=== PATIENT | female | born 1970 | race Caucasian/White ===

== ENCOUNTER 2021-04-25 07:37 | Day surgery (SDC) | payer BC ==
[~2021-04-25] VITALS: Ht 157.5 cm; Wt 52.8 kg
[2021-04-25] MEDS ORDERED: OMNIPOD DASH1 EACH SQ (07:53)
[2021-04-25] MEDS ORDERED: PRINIVIL2.5 MG PO (07:53)
[2021-04-25] MEDS ORDERED: OSPHENA60 MG PO (07:54)
[2021-04-25] MEDS ORDERED: ONE-A-DAY ESSE1 EACH PO (07:54)
[2021-04-25] MEDS ORDERED: CALCIUM 600MG+D1 TAB PO (07:55)
[2021-04-25 07:59] VITALS: BP 97/70; PULSE 83; TEMP 97.6
[2021-04-25 09:40] VITALS: BP 92/73; PULSE 67; TEMP 97.1
--- NOTE | 2021-04-25 09:40 | NUR ---
0908-Patient arrived to [facility] [place] [facility] s/p colonoscopy with Dr. Cerrato. She is awake and ambulating with standby assistance from cart to recliner. Spouse is at bedside with her. Vitals remain stable. SPO2 is 99% on room air. Abdomen is soft and she denies having any pain or nausea at this time. Dr. Cerrato was in to speak with her spouse regarding procedure findings. Call gardner in reach. 3452-Given water and blueberry muffin per request.
[2021-04-25 09:55] VITALS: BP 104/64; PULSE 61
--- NOTE | 2021-04-25 09:55 | NUR ---
0955-Patient continues doing well and vitals are stable. She used her home glucometer to check her blood sugar and it was 148. She tolerated the water and muffin without any nausea. Denies any complaints or concerns at this time.
[2021-04-25 10:10] VITALS: BP 103/62; PULSE 64; TEMP 97.8
--- NOTE | 2021-04-25 10:10 | NUR ---
1010-Patient continues doing well and reports she is ready to discharge home. IV site removed from her right forearm. Tip of catheter is intact. Cotton ball and tape applied. No active bleeding noted. Vitals remain stable. She is going to get dressed and prepare for discharge. 1025-Discussed discharge instructions with patient and her spouse. Given a copy of instructions for home use. Both verbalized understanding and deny having any additional questions at this time. Assisted into wheelchair and taken to [facility] for discharge home. 1030-Assisted into private car with her . Belongings and discharge instructions with her.
== END 2021-04-25 10:30 | disposition home or self-care (01) ==
LOC: SDCO 07:37
DX: Z12.11 Encounter for screening for malignant neoplasm of colon (principal); E10.9 Type 1 diabetes mellitus without complications; F41.9 Anxiety disorder, unspecified; Z79.4 Long term (current) use of insulin; Z79.899 Other long term (current) drug therapy
CPT/HCPCS: J2704; J7120

== ENCOUNTER → 2022-04-09 | Outpatient (CLI) | payer BC ==
[~2022-04-09] MED LIST: CALCIUM 600MG+D1 TAB PO; OMNIPOD DASH1 EACH SQ; ONE-A-DAY ESSE1 EACH PO; OSPHENA60 MG PO; PRINIVIL2.5 MG PO
== END ==
LOC: MC.RAD 09:00
DX: Z12.31 Encounter for screening mammogram for malignant neoplasm of breast (principal)

== ENCOUNTER → 2024-06-22 | Outpatient (CLI) | payer BC | LOC: MC.RAD 10:11 | DX: Z12.31 Encounter for screening mammogram for malignant neoplasm of breast (principal); Z01.419 Encounter for gynecological examination (general) (routine) without abnormal findings ==